=== PATIENT | female | born 1935 | race Two or more races ===

== ENCOUNTER 2021-04-22 20:49 | Emergency (ER) | payer OTHER ==
[~2021-04-22] VITALS: Ht 175.3 cm; Wt 77.1 kg
[2021-04-22] MEDS ORDERED: ELIQUIS2.5 MG (21:04)
== END 2021-04-23 01:58 | disposition home or self-care (01) ==
LOC: ER 20:49
DX: S00.83XA Contusion of other part of head, initial encounter (principal); W18.39XA Other fall on same level, initial encounter; Y93.89 Activity, other specified; Y92.098 Other place in other non-institutional residence as the place of occurrence of the external cause; Y99.8 Other external cause status; R42 Dizziness and giddiness